=== PATIENT | male | born 2000 | race Caucasian/White ===

== ENCOUNTER 2022-06-13 06:25 | Day surgery (SDC) | payer OTHER ==
[~2022-06-13] VITALS: Ht 167.6 cm; Wt 69.9 kg
[2022-06-13] MEDS ORDERED: PROPOFOL 200 MG/20 ML VIAL IV ONE (09:29)
[2022-06-13] MEDS ORDERED: LABETALOL 20 MG/4 ML VIAL IVP PRN (10:00)
[2022-06-13] MEDS ORDERED: hydrALAZINE 20 MG/ML VIAL IVP PRN (10:00)
[2022-06-13] MEDS ORDERED: LACTATED RINGERS 1,000 ML IV SCH (10:00)
== END 2022-06-13 11:17 | disposition home or self-care (01) ==
LOC: MOR 06:25 → MMU 06:26 → MOR 11:17
PROVIDERS: ATTEND Internal Medicine Gastroenterology
DX: K62.5 Hemorrhage of anus and rectum (principal); K52.9 Noninfective gastroenteritis and colitis, unspecified; Z80.3 Family history of malignant neoplasm of breast; Z79.899 Other long term (current) drug therapy; Z20.822 Contact with and (suspected) exposure to COVID-19
CPT/HCPCS: J2704